=== PATIENT | female | born 2000 | race Caucasian/White ===

== ENCOUNTER 2025-03-23 11:56 | Outpatient (CLI) | payer OTHER, MEDICAID ==
--- NOTE | 2025-03-23 13:57 | RADIOLOGY REPORT ---
PROCEDURE: MR MRI LUMBAR SPINE INDICATION: LOW BACK PAIN, UNSPECIFIED Exam Date: 03/23/2025 12:57 PM COMPARISON: None TECHNIQUE: MRI lumbar spine without intravenous contrast. FINDINGS: Intervertebral disc height is maintained. Alignment: No spondylolisthesis identified. Vertebrae: Vertebral body height is well maintained without evidence of a recent compression fracture. Conus: Conus medullaris terminates at the T12-L1 level. T12-L1: The disc configuration is normal. No spinal canal or neural foraminal stenosis. The facet joints are normal. L1-2: The disc configuration is normal. No spinal canal or neural foraminal stenosis. The facet joints are normal. L2-3: The disc configuration is normal. No spinal canal or neural foraminal stenosis. The facet joints are normal. L3-4: The disc configuration is normal. No spinal canal or neural foraminal stenosis. The facet joints are normal. L4-5: Disc desiccation and 5.6 mm disc bulge. Moderate left subarticular zone stenosis. Moderate left foraminal stenosis. The facet joints are normal. L5-S1: The disc configuration is normal. No spinal canal or neural foraminal stenosis. Facet arthrosis. IMPRESSION: Disc bulge at L4-L5 level. Moderate left subarticular zone stenosis at L4-L5 level. Moderate left foraminal stenosis at L4-L5 level.
== END 2025-03-23 23:59 | disposition home or self-care (01) ==
LOC: MRI 11:56
PROVIDERS: ATTEND Nurse Practitioner Family
DX: M51.360 Other intervertebral disc degeneration, lumbar region with discogenic back pain only (principal); M48.061 Spinal stenosis, lumbar region without neurogenic claudication; Z87.828 Personal history of other (healed) physical injury and trauma
CPT/HCPCS: 72148